=== PATIENT | female | born 1995 | race Caucasian/White ===

== ENCOUNTER → 2019-11-02 | Outpatient (CLI) | payer BC | LOC: OD 09:57 | PROVIDERS: ATTEND Advanced Practice Midwife | DX: N91.1 Secondary amenorrhea (principal) | CPT/HCPCS: 36415; 84702 ==

== ENCOUNTER → 2019-11-04 | Outpatient (CLI) | payer BC | LOC: LAB 11:11 | PROVIDERS: ATTEND Advanced Practice Midwife | DX: N91.1 Secondary amenorrhea (principal) | CPT/HCPCS: 36415; 84702 ==

== ENCOUNTER 2019-11-05 16:19 | Emergency (ER) | payer BC ==
--- NOTE | 2019-11-05 16:39 | ER Document Report ---
ED Medical Screen (RME) - General Chief Complaint: Vag Bleeding, +preg <12wks Stated Complaint: VAGINAL BLEEDING,ABDOMINAL PAIN Time Seen by Provider: 11/05/19 16:29 Primary Care Provider: EBONY HERNANDEZ CNM [Primary Care Provider] - Follow up as needed Mode of Arrival: Ambulatory Information source: Patient Notes: 23-year-old female patient G4, P1 presenting to the emergency department with vaginal bleeding in the setting of . Patient reports that she has had some issues with this in night her hCG levels were not rising appropriately and she had an ultrasound with a gestational sac in it. She reports that she started having bleeding this morning. She reports mild nausea without vomiting. I have greeted and performed a rapid initial assessment of this patient. A comprehensive ED assessment and evaluation of the patient, analysis of test results and completion of the medical decision making process will be conducted by additional ED providers. I have specifically instructed the patient or family members with the patient to immediately return to any nursing staff should anything change in the patient's condition or with their chief complaint. - Related Data Allergies/Adverse Reactions: No Known Allergies Allergy (Unverified 11/05/19 16:29) Home Medications: PNV Past Medical History - Social History Chew tobacco use (# tins/day): No Frequency of alcohol use: Rare Drug Abuse: None Past Surgical History: Reports: Hx Oral Surgery - wisdom, Hx Orthopedic Surgery - rt knee hematoma repair, Hx Tonsillectomy Physical Exam - Vital signs Vitals: Temp Pulse Resp BP Pulse Ox 98.1 F 85 16 119/66 98 11/05/19 16:24 11/05/19 16:24 11/05/19 16:24 11/05/19 16:24 11/05/19 16:24 Course - Vital Signs Vital signs: Temp Pulse Resp BP Pulse Ox 98.1 F 85 16 119/66 98 11/05/19 16:30 11/05/19 16:24 11/05/19 16:24 11/05/19 16:24 11/05/19 16:24 Doctor's Discharge - Discharge Referrals: EBONY HERNANDEZ CNM [Primary Care Provider] - Follow up as needed
[2019-11-05 17:01] LABS: ABSOLUTE BASOPHILS # (AUTO) 0.1 10^3/uL (0.0-0.2); TOTAL CELLS COUNTED % (AUTO) 100 %
[2019-11-05 17:06] LABS: APPEARANCE,URINE CLOUDY; BILIRUBIN,URINE NEGATIVE (NEGATIVE); COLOR,URINE YELLOW; GLUCOSE, URINE NEGATIVE (NEGATIVE); KETONES,URINE NEGATIVE (NEGATIVE); LEUKOCYTE ESTERASE,URINE LARGE (NEGATIVE); NITRITE,URINE NEGATIVE (NEGATIVE); PROTEIN,URINE NEGATIVE (NEGATIVE); URINE SPECIFIC GRAVITY 1.016; UROBILINOGEN,URINE NEGATIVE mg/dL (<2.0)
[2019-11-05 17:08] LABS: ABSOLUTE EOSINOPHILS # (AUTO) 0.2 10^3/uL (0.0-0.6); ABSOLUTE LYMPHOCYTES (AUTO) 2.4 10^3/uL (0.5-4.7); BASOPHILS % (AUTO) 0.7 % (0-2); EOSINOPHILS % (AUTO) 1.3 % (0-6); HEMATOCRIT 37.1 % (36.0-47.0); HEMOGLOBIN 12.8 g/dL (12.0-15.5); LYMPHOCYTES % (AUTO) 18.8 % (13-45); MEAN CORPUSCULAR HEMOGLOBIN 29.6 pg (27.0-33.4); MEAN CORPUSCULAR HGB CONC 34.6 g/dL (32.0-36.0); MEAN CORPUSCULAR VOLUME 85 fl (80-97); MONOCYTES % (AUTO) 8.1 % (3-13); PLATELET COUNT 281 10^3/uL (150-450); RED BLOOD COUNT 4.34 10^6/uL (3.72-5.28); SEGMENTED NEUTROPHILS % (AUTO) 71.1 % (42-78); WHITE BLOOD COUNT 12.6 10^3/uL (4.0-10.5)
--- NOTE | 2019-11-05 17:44 | RADIOLOGY REPORT (SQ) ---
EXAM DESCRIPTION: U/S OB TRANSVAGINAL W/O DOP IMAGES COMPLETED DATE/TIME: 11/05/2019 5:23 pm REASON FOR STUDY: vag bleed, +preg COMPARISON: None. TECHNIQUE: Transvaginal static and realtime grayscale images acquired of the pelvis. Additional fidencio cted spectral and color Doppler images recorded. All images stored on PACs. bHCG: Pending. CLINICAL DATES: EPIFANIO: 06/25/2020. EGA: 6 weeks 5 days LIMITATIONS: None. FINDINGS: FETUS: No Living intrauterine . ULTRASOUND EGA: 6 weeks 3 days ULTRASOUND EPIFANIO: 06/27/2020 CRL: Not visualized. YOLK SAC: Not visualized. GESTATIONAL SAC: Visualized. AMNIOTIC FLUID: Adequate amount. SUBCHORIONIC BLEED: Yes. A complex 1.3 x 1.8 x 0.6 cm hypoechoic area adjacent to the gestational sa c. SIZE OF BLEED: See above. UTERUS: The uterus measures 8.6 x 4.4 x 7.1 cm No masses. No anomalies. CERVICAL LENGTH: 2.9 cm. Closed. RIGHT ADNEXA: The right ovary measures 2.8 x 2.0 x 3.9 cm. Normal ovary with normal vascular flow. No adnexal free fluid. No adnexal masses. LEFT ADNEXA: The left ovary measures 2.8 x 1.9 x 2.5 cm. Normal ovary with normal vascular flow. No adnexal free fluid. No adnexal masses. FREE FLUID: None. OTHER: No other significant finding. IMPRESSION: 1. No evidence of pole by ultrasound examination. An empty gestational sac is id entified. Gestational sac measurement correlates to an EGA of 6 weeks 3 days. Clinical correlation, correlation with lab values and follow-up examination. 2. Additional findings as above. Trimester of : First trimester - 0 to 13 weeks. TECHNICAL DOCUMENTATION: JOB ID: [id number] 2010 Immediately- All Rights Reserved rev-11/11 Reading location - IP/workstation name: [email or web address]
[2019-11-05 18:23] LABS: ALBUMIN 4.1 g/dL (3.5-5.0); ALKALINE PHOSPHATASE 50 U/L (38-126); ANION GAP 9 (5-19); ASPARTATE AMINO TRANSFERASE 23 U/L (14-36); BILIRUBIN,TOTAL 0.4 mg/dL (0.2-1.3); BLOOD UREA NITROGEN 9 mg/dL (7-20); CALCIUM 9.8 mg/dL (8.4-10.2); CARBON DIOXIDE 22 mmol/L (22-30); CHLORIDE 104 mmol/L (98-107); GLUCOSE 93 mg/dL (75-110); POTASSIUM 4.1 mmol/L (3.6-5.0); TOTAL PROTEIN 7.6 g/dL (6.3-8.2)
--- NOTE | 2019-11-05 18:25 | ER Document Report ---
ED GI/ - General Chief Complaint: Vag Bleeding, +preg <12wks Stated Complaint: VAGINAL BLEEDING,ABDOMINAL PAIN Time Seen by Provider: 11/05/19 16:29 Primary Care Provider: EBONY HERNANDEZ CNM [CERTIFIED NURSE EDGE SAWYER] - Follow up as needed Mode of Arrival: Ambulatory Information source: Patient Notes: 23-year-old female who states she is approximately 5 weeks presents to the emergency room with pelvic cramping for the past 4 days. States she saw her BLUEPRINT CLERK on Tuesday states she had an ultrasound that she states they told her that she had an empty gestational sac they did blood work but she does not know what her hCG level was at that time. Patient states she had repeat blood work 48 hours ago which would have been yesterday states that her quant is somewhere in the 16,000's. She had some mild spotting today but denies any active bleeding at this time. She is a 4 para 1 with 2 previous miscarriages. Came to the emergency room for persistent cramping. Denies nausea, vomiting, TRAVEL OUTSIDE OF THE [place] IN LAST 30 DAYS: No - Related Data Allergies/Adverse Reactions: No Known Allergies Allergy (Unverified 11/05/19 16:29) Home Medications: PNV Past Medical History - General Information source: Patient - Social History Smoking Status: Never Smoker Chew tobacco use (# tins/day): No Frequency of alcohol use: Rare Drug Abuse: None Lives with: Family Family History: Reviewed & Not Pertinent Patient has homicidal ideation: No Past Surgical History: Reports: Hx Oral Surgery - wisdom, Hx Orthopedic Surgery - rt knee hematoma repair, Hx Tonsillectomy Review of Systems - Review of Systems Constitutional: No symptoms reported Cardiovascular: No symptoms reported Respiratory: No symptoms reported Gastrointestinal: No symptoms reported Female Genitourinary: , Other - Pelvic cramping. denies: Vaginal discharge, Vaginal bleeding Neurological/Psychological: No symptoms reported -: Yes All other systems reviewed and negative Physical Exam - Vital signs Vitals: Temp Pulse Resp BP Pulse Ox 98.1 F 85 16 119/66 98 11/05/19 16:24 11/05/19 16:24 11/05/19 16:24 11/05/19 16:24 11/05/19 16:24 - General General appearance: Appears well, Alert In distress: Mild - HEENT Head: Normocephalic, Atraumatic Eyes: Normal Pupils: PERRL - Respiratory Respiratory status: No respiratory distress Chest status: Nontender Breath sounds: Normal Chest palpation: Normal - Cardiovascular Rhythm: Regular Heart sounds: Normal auscultation Murmur: No - Abdominal Inspection: Normal Distension: No distension Bowel sounds: Normal Tenderness: Tender - Minimal tenderness noted to the lower pelvic region.. No: Guarding, Rebound Organomegaly: No organomegaly - Back Back: Normal, Nontender. No: CVA tenderness - Neurological Neuro grossly intact: Yes Cognition: Normal Orientation: AAOx4 [place] Coma Scale Eye Opening: Spontaneous [place] Coma Scale Verbal: Oriented [place] Coma Scale Motor: Obeys Commands Ayaz Coma Scale Total: 15 Speech: Normal Motor strength normal: LUE, RUE, LLE, RLE Sensory: Normal - Skin Skin Temperature: Warm Skin Moisture: Dry Skin Color: Normal Course - Re-evaluation Re-evalutation: 11/05/19 18:26 Patient is resting comfortably denies any vaginal bleeding. States had light spotting early this morning. Reviewed ultrasound results with patient. Aware labs are pending. Tylenol ordered for pain. Blood type is O+. No indication for RhoGam 11/05/19 19:22 Patient is resting comfortably she is pain-free on exam. Denies any pain denies any bleeding. Ultrasound and all lab results were reviewed again with the patient. Patient was given copies of her result so that she can follow-up tomorrow with her BLUEPRINT CLERK. Take Tylenol as needed for pain. She was given strict return to the emergency room guidelines. All questions were answered. Patient verbalized understanding agrees with plan of care. 11/05/19 21:39 - Vital Signs Vital signs: Temp Pulse Resp BP Pulse Ox 98.3 F 82 16 120/70 99 11/05/19 19:45 11/05/19 19:45 11/05/19 19:45 11/05/19 19:45 11/05/19 19:45 - Laboratory Result Diagrams: 11/05/19 16:40 11/05/19 16:40 Laboratory results interpreted by me: 11/05/19 11/05/19 11/05/19 16:40 16:40 16:40 WBC 12.6 H Absolute Neuts (auto) 9.0 H Sodium 134.5 L Creatinine 0.46 L Beta HCG, Quant 21890.00 H Urine Blood SMALL H Ur Leukocyte Esterase LARGE H - Diagnostic Test Radiology reviewed: Reports reviewed Discharge - Discharge Clinical Impression: Threatened miscarriage Subchorionic bleed Qualifiers: Fetus number: single or unspecified fetus Trimester: first trimester Qualified Code(s): O41.8X10 - Other specified disorders of amniotic fluid and membranes, first trimester, not applicable or unspecified Condition: Stable Disposition: HOME, SELF-CARE Instructions: Threatened Miscarriage ([facility]) Additional Instructions: Tylenol as needed for pain. Pelvic rest. Follow-up with your BLUEPRINT CLERK tomorrow with all of your test results. Return for any new or worsening symptoms. Referrals: EBONY HERNANDEZ CNM [CERTIFIED NURSE EDGE SAWYER] - Follow up as needed
[2019-11-05] MEDS ORDERED: ACETAMINOPHEN 325 MG TABLET PO ONE (18:26)
[2019-11-05 19:46] VITALS: BP 120/70
== END 2019-11-05 19:45 | disposition home or self-care (01) ==
LOC: ER 16:19
DX: O20.0 Threatened abortion (principal); O41.8X10 Other specified disorders of amniotic fluid and membranes, first trimester, not applicable or unspecified; O26.891 Other specified pregnancy related conditions, first trimester; R10.9 Unspecified abdominal pain; Z3A.01 Less than 8 weeks gestation of pregnancy
CPT/HCPCS: 36415; 76817; 80053; 81001; 84702; 85025; 86900; 86901; 99284

== ENCOUNTER 2019-12-05 00:29 | Day surgery (SDC) | payer BC ==
[2019-12-05] MEDS ORDERED: NORMAL SALINE 500 ML IV ONE (01:11)
[2019-12-05] MEDS ORDERED: ONDANSETRON HCL INJ/PF 4 MG/2 ML SDV IV ONE (02:11)
[2019-12-05] MEDS ORDERED: MORPHINE SULFATE 10 MG/ML INJ IV ONE (02:11)
[2019-12-05 02:30] LABS: ABSOLUTE BASOPHILS # (AUTO) 0.1 10^3/uL (0.0-0.2); ABSOLUTE EOSINOPHILS # (AUTO) 0.1 10^3/uL (0.0-0.6); ABSOLUTE LYMPHOCYTES (AUTO) 2.5 10^3/uL (0.5-4.7); ABSOLUTE MONOCYTES (AUTO) 0.8 10^3/uL (0.1-1.4); ABSOLUTE NEUT (AUTO) 9.8 10^3/uL (1.7-8.2); BASOPHILS % (AUTO) 0.6 % (0-2); HEMATOCRIT 37.6 % (36.0-47.0); HEMOGLOBIN 12.8 g/dL (12.0-15.5); LYMPHOCYTES % (AUTO) 19.1 % (13-45); MEAN CORPUSCULAR HEMOGLOBIN 29.7 pg (27.0-33.4); MEAN CORPUSCULAR VOLUME 87 fl (80-97); MONOCYTES % (AUTO) 5.7 % (3-13); PLATELET COUNT 241 10^3/uL (150-450); RED BLOOD COUNT 4.32 10^6/uL (3.72-5.28); RED CELL DISTRIBUTION WIDTH 14.9 % (11.5-14.0); SEGMENTED NEUTROPHILS % (AUTO) 73.6 % (42-78); TOTAL CELLS COUNTED % (AUTO) 100 %; WHITE BLOOD COUNT 13.3 10^3/uL (4.0-10.5)
[2019-12-05 02:41] LABS: INTERNATIONAL RATION (INR) 1.03; PROTHROMBIN TIME 13.5 SEC (11.4-15.4)
[2019-12-05 02:42] LABS: PARTIAL THROMBOPLASTIN TIME 34.7 SEC (23.5-35.8)
[2019-12-05 02:54] LABS: ALBUMIN 3.9 g/dL (3.5-5.0); ALKALINE PHOSPHATASE 54 U/L (38-126); ANION GAP 8 (5-19); ASPARTATE AMINO TRANSFERASE 23 U/L (14-36); BILIRUBIN,TOTAL 0.3 mg/dL (0.2-1.3); BLOOD UREA NITROGEN 14 mg/dL (7-20); CALCIUM 9.7 mg/dL (8.4-10.2); CARBON DIOXIDE 23 mmol/L (22-30); CHLORIDE 105 mmol/L (98-107); GLUCOSE 90 mg/dL (75-110); POTASSIUM 4.6 mmol/L (3.6-5.0); TOTAL PROTEIN 7.2 g/dL (6.3-8.2)
--- NOTE | 2019-12-05 04:41 | RADIOLOGY REPORT (SQ) ---
Ultrasound OB transvaginal on 12/05/2019 at 4:12 AM Clinical indications: Heavy vaginal bleeding, patient treated with Cytotec today COMPARISON: 11/05/2019 FINDINGS: Multiple sonographic images are obtained throughout the pelvis by transvaginal approach, both transverse and sagittal images are obtained. Uterus measures approximately 9.6 x 4.8 x 5.3 cm. Right ovary measures approximately 3.2 x 2.6 x 2.0 cm. Flow is demonstrated in the right ovary. Left ovary measures approximately 2.1 x 1.5 x 1.5 cm. Flow is demonstrated in the left ovary. Endometrium is thickened and heterogeneous with large amount of blood and clot within the endometrium. No intrauterine is identified. There is also blood and clot in the endocervical canal. Trace free fluid is noted in the pelvis. IMPRESSION: No intrauterine identified with a large amount of blood and clot in the endometrium and endocervical canal. No definite retained products of conception are noted but would be difficult to fully exclude on this exam.
--- NOTE | 2019-12-05 07:06 | ER Document Report ---
ED General - General Chief Complaint: Vaginal Bleeding Stated Complaint: VAGINAL BLEEDING TRAVEL OUTSIDE OF THE [place] IN LAST 30 DAYS: No - HPI Notes: 24-year-old female unknown LMP presents with vaginal bleeding for approxima tely 3 hours prior to arrival. Patient says that she was told she had a blighted ovum weeks ago and on day of presentation to the ED was given Cytotec by her LUMBER PILER OPERATOR Dr. Vallejo and at 10 PM patient began having severe cramping pain and then severe vaginal bleeding with approximately 8 pads per hour for 3 hours since arriving in ED. Patient says she had lightheadedness and episode of near syncope associated with this. Patient denies trauma, vaginal discharge, bleeding diatheses, anticoagulation, chest pain, shortness of breath - Related Data Allergies/Adverse Reactions: No Known Allergies Allergy (Verified 12/05/19 01:05) Home Medications: CYCOTEC. NORCO. IBUPROFEN Past Medical History - General Information source: Patient, [facility] Records - Social History Smoking Status: Former Smoker Frequency of alcohol use: Social Drug Abuse: None Family History: Reviewed & Not Pertinent Patient has homicidal ideation: No Past Surgical History: Reports: Hx Oral Surgery - wisdom, Hx Orthopedic Surgery - rt knee hematoma repair, Hx Tonsillectomy Review of Systems - Review of Systems Notes: REVIEW OF SYSTEMS: CONSTITUTIONAL : Denies fever, chills, or sweats. EENT: Denies recent cold/sinus symptoms, denies throat pain CARDIOVASCULAR: Denies chest pain, TOMEKA RESPIRATORY: Denies cough, denies shortness of breath. GASTROINTESTINAL: Denies abdominal pain, nausea/vomiting. GENITOURINARY: Denies difficulty urinating, painful urination. FEMALE GENITOURINARY: + abnormal vaginal bleeding, -vaginal discharge. MUSCULOSKELETAL: Denies neck pain, back pain. SKIN: Denies rash or skin lesions. HEMATOLOGIC : Denies easy bruising or bleeding. LYMPHATIC: Denies swollen, enlarged glands. NEUROLOGICAL: Denies headache, denies change in gait. PSYCHIATRIC: Denies anxiety or stress or depression. Physical Exam - Vital signs Vitals: Temp Pulse Resp BP Pulse Ox 99.0 F 86 18 132/67 H 99 12/05/19 01:04 12/05/19 01:04 12/05/19 01:04 12/05/19 01:04 12/05/19 01:04 - Notes Notes: PHYSICAL EXAMINATION: GENERAL: Well-appearing, well-nourished and in no acute distress. HEAD: Atraumatic, normocephalic. EYES: Pupils equal round and appropriate constriction, sclera anicteric, conjunctiva are normal. ENT: nares patent, moist mucous membranes. NECK: Normal range of motion, supple without lymphadenopathy LUNGS: Breath sounds clear to auscultation bilaterally and equal. No wheezes rales or rhonchi. HEART: Regular rate and rhythm without murmurs ABDOMEN: Soft, nontender, no guarding, no masses, no CVAT PELVIC: Large clots and dark blood in vaginal vault, after clearing reaccumulated after several seconds, also open to fingertip, no CMT, no adnexal tenderness or masses EXTREMITIES: Normal range of motion, no pitting or edema. No cyanosis. NEUROLOGICAL: Awake, alert, conversing appropriately, moves all extremities spontaneously. PSYCH: Normal mood, normal affect. SKIN: Warm, Dry, normal turgor, no rashes or lesions noted. Course - Re-evaluation Re-evalutation: 12/05/19 07:09 Despite reported amount of vaginal bleeding, patient had normal vital signs and was hemodynamically stable in ED. Patient previously had with gestational sac, which was absent on ultrasound this ED visit. given amount of bleeding reported intermittent bleeding on exam contacted LUMBER PILER OPERATOR for possible D&C. Evaluated in ED by Dr. Liu and is currently expansion envelope maker hand to OR pending rapid COVID test result. Patient remains hemodynamically stable, will continue to monitor until transfer to the OR. - Vital Signs Vital signs: Temp Pulse Resp BP Pulse Ox 99.0 F 86 18 132/67 H 99 12/05/19 01:05 12/05/19 01:04 12/05/19 01:04 12/05/19 01:04 12/05/19 01:04 - Laboratory Result Diagrams: 12/05/19 02:04 12/05/19 02:04 Laboratory results interpreted by me: 12/05/19 12/05/19 12/05/19 02:04 02:04 02:04 WBC 13.3 H RDW 14.9 H Absolute Neuts (auto) 9.8 H Sodium 135.6 L Creatinine 0.49 L Serum HCG, Qual POSITIVE H Beta HCG, Quant 12/05/19 02:04 WBC RDW Absolute Neuts (auto) Sodium Creatinine Serum HCG, Qual Beta HCG, Quant 3822.20 H Discharge - Discharge Clinical Impression: Incomplete miscarriage Disposition: SAME DAY SURGERY Admitting Provider: Dr. Cirilo Liu Unit Admitted: OR
[2019-12-05] MEDS ORDERED: SUCCINYLCHOLINE CHLORIDE INJ 200 MG/10 ML VIAL ONE (08:20)
[2019-12-05] MEDS ORDERED: DEXAMETHASONE SOD PHOSPHATE INJ 4 MG/1 ML VIAL ONE (08:20)
[2019-12-05] MEDS ORDERED: ONDANSETRON HCL INJ/PF 4 MG/2 ML SDV ONE (08:20)
[2019-12-05] MEDS ORDERED: KETOROLAC TROMETHAMINE 60 MG/2 ML SDV ONE (10:33)
[2019-12-05] MEDS ORDERED: FENTANYL CITRATE INJ/PF 100 MCG/2 ML AMPUL ONE (10:34)
[2019-12-05] MEDS ORDERED: MIDAZOLAM 2 MG/2 ML INJ ONE (10:34)
[2019-12-05] MEDS ORDERED: PROPOFOL INJ 200 MG/20 ML VIAL IV ONE (10:34)
[2019-12-05] MEDS ORDERED: DOXYCYCLINE HYCLATE INJ 100 MG VIAL IV ONE (10:56)
[2019-12-05] MEDS ORDERED: ONDANSETRON HCL INJ/PF 4 MG/2 ML SDV IV PRN ×2 (11:17→11:22)
[2019-12-05] MEDS ORDERED: OXYCODONE-ACETAMINOPHEN 5-325 MG TABLET PO PRN ×3 (11:17→11:22)
[2019-12-05] MEDS ORDERED: KETOROLAC TROMETHAMINE 60 MG/2 ML SDV IM PRN (11:17)
[2019-12-05] MEDS ORDERED: RINGERS SOLUTION,LACTATED 1,000 ML IV PRN (11:17)
[2019-12-05] MEDS ORDERED: DIPHENHYDRAMINE HCL 50 MG/ML VIAL IV PRN (11:22)
[2019-12-05] MEDS ORDERED: PROMETHAZINE HCL INJ 25 MG/1 ML VIAL IV PRN ×2 (11:22)
[2019-12-05] MEDS ORDERED: FENTANYL CITRATE INJ/PF 100 MCG/2 ML AMPUL IV PRN ×3 (11:22)
[2019-12-05] MEDS ORDERED: MEPERIDINE HCL/PF INJ 25 MG/1 ML DISP.SYRIN IV PRN (11:22)
[2019-12-05] MEDS ORDERED: MORPHINE SULFATE 10 MG/ML INJ IV PRN (11:22)
--- NOTE | 2019-12-05 11:57 | Operative Report ---
Operative Report DATE OF SURGERY: 12/05/19 PREOPERATIVE DIAGNOSIS: Blighted ovum. Missed . Heavy vaginal bleeding POSTOPERATIVE DIAGNOSIS: Blighted ovum. Missed . Heavy vaginal bleeding OPERATION: Suction dilation and curettage SURGEON: CECI NATION ANESTHESIA: GA TISSUE REMOVED OR ALTERED: Products of conception COMPLICATIONS: None ESTIMATED BLOOD LOSS: 200cc INTRAOPERATIVE FINDINGS: Clots and tissue in cervical os dilating os to 1cm. Blood, clots and consulting networking engineer tissue noted in suction tubing. Uterus firm at end of procedure on bimanual exam PROCEDURE: IV fluids: Crystalloid IV fluids per anesthesia record Disposition: To recovery room in stable condition Description of the procedure: The patient was taken to the operating room where monitored anesthesia was administered and found to be adequate. She was then placed in the dorsol lithotomy position and prepped and draped in the usual sterile fashion. A timeout was taken. Bladder was drained. A weighted speculum was placed in the vagina and a Stacy retractor was used to bring the cervix into good view. A single-tooth tenaculum was used to grasp the anterior lip of the cervix and the cervix was noted to have clots and tissue in os dilating it to 1cm. This was removed with ring forcep and no further dilation required. The uterus sounded to approximately 8.5 cm . The #8 suction curette was inserted and using suction, the products of conception were removed. The suction curette was removed and a regular curette was advanced to the uterine fundus. Gentle curettage was done in a circumferential manner until a gritty texture was noted. The curette was removed and suction curette re-inserted to the fundus. Suction curettage done once more. The tissue obtained will be sent to the lab as products of conception. Part of sample sent fresh for Chromosomes. The procedure was then terminated all instrument to remove the patient's vagina. Bimanual massage done and uterus felt firm and smaller. The patient tolerated the procedure well all instrument sponge and needle counts were correct x2 for the procedure she will proceed to recovery room in stable condition
[2019-12-05] MEDS ORDERED: DOXYCYCLINE HYCLATE 200 MG in DEXTROSE 5%-WATER 250 ML IV PRN (12:02)
--- NOTE | 2019-12-05 12:04 | Discharge Summary ---
Discharge Summary (SDC) - Discharge Final Diagnosis: Blighted ovum, incomplete/missed Date of Surgery: 12/05/19 Discharge Date: 12/05/19 Condition: Stable Treatment or Instructions: May have vaginal bleeding like a period for up to 6 weeks. Stay on pelvic rest until that time. Monitor for fever, chills. Prescriptions: Metronidazole 500 mg PO BID 7 Days #14 tablet Respiratory Treatments at Home: Deep Breathing/Coughing Discharge Activity: Activity As Tolerated Home Care Assistance: None Needed Report the Following to Your Physician Immediately: Shortness of Breath, Nausea, Vomiting, Fever over 101 Degrees, Unusual Bleeding, Drainage-Foul Smelling, Large Clots, IV Site Infection Signs
[2019-12-05 12:58] LABS: HEMATOCRIT 36.9 % (36.0-47.0); HEMOGLOBIN 12.2 g/dL (12.0-15.5); MEAN CORPUSCULAR HEMOGLOBIN 29.3 pg (27.0-33.4); MEAN CORPUSCULAR VOLUME 89 fl (80-97); PLATELET COUNT 185 10^3/uL (150-450); RED BLOOD COUNT 4.16 10^6/uL (3.72-5.28); RED CELL DISTRIBUTION WIDTH 14.7 % (11.5-14.0); WHITE BLOOD COUNT 10.2 10^3/uL (4.0-10.5)
[2019-12-05 16:16] VITALS: BP 110/66
== END 2019-12-05 17:00 | disposition home or self-care (01) ==
LOC: ER 00:29 → OROUT 11:44
PROVIDERS: ATTEND Obstetrics & Gynecology
DX: O02.1 Missed abortion (principal); O02.0 Blighted ovum and nonhydatidiform mole; N93.8 Other specified abnormal uterine and vaginal bleeding; E66.01 Morbid (severe) obesity due to excess calories; Z87.891 Personal history of nicotine dependence
CPT/HCPCS: 86900; 86901; 36415; 86850; 84702; 83690; 84703; 85025; 85610; 85730; 87635; 80053; 88305 ×2; 76817; 59820; J2250; J3490 ×2; J1885; J3010; J2270; J2405; J7060; J7040; J2704; C9803; 1965; J0330; J1100